=== PATIENT | male | born 1990 | race African-American/Black ===

== ENCOUNTER 2017-08-10 15:09 | Emergency (ER) | payer OTHER ==
[2017-08-10] MEDS ORDERED: ACETAMINOPHEN 500 MG TABLET (FP) PO ONE (15:16)
--- NOTE | 2017-08-10 15:22 | PDOC ---
Rapid Medical Evaluation Time Seen by Provider: 08/10/17 15:16 Medical Evaluation: Allergies Allergy/AdvReac Type Severity Reaction Status Date / Time No Known Drug Allergies Allergy Verified 10/06/14 21:56 08/10/17 15:17 Pt with c/: myalgia and fever since this am, headache with dry cough, no travel , no sick contacts. + hx scd, feels like crisis Pt on brief exam: febrile and tachy Pt ordered for : tylenol 975mg given in triage, cbc, comp, retic count, bc, lactic, ua, ucx, mag pt to proceed to the ED 08/10/17 17:38 Pt unable to be located in the waiting area. Called pt on cell phone and asked why he left. He said he just wanted to go home and not wait. I told pt he was + for influenza A and due to his hx of scd/hiv , he should reiurn to the ED for further evaluation and management. He said ok. Discharge Disposition - Diagnosis Fever - Discharge Dispostion Disposition: ELOPED - Referrals Referrals: Jim Juarez NEWSP[employer]ER DELIVERY COUNSELOR [Primary Care Provider] - - Patient Instructions - Post Discharge Activity
[2017-08-10 15:24] VITALS: BP 145/73; PULSE 110; TEMP 100.5; BMI 28.3
[2017-08-10] MEDS ORDERED: SODIUM CHLORIDE 1,000 ML IV STA (15:24)
[2017-08-10 16:27] LABS: BASO % 0.8 % (0-2.0); EOS % 0.4 % (0-4.5); HEMATOCRIT 37.9 % (35.4-49); HEMOGLOBIN 12.8 GM/dL (11.7-16.9); LYMPH % 10.4 % (8-40); MCH 27.5 pg (25.7-33.7); MCHC 33.8 g/dl (32.0-35.9); MEAN CELL VOLUME 81.5 fl (80-96); MEAN PLT VOLUME 8.8 fl (7.5-11.1); MONO % 11.7 % (3.8-10.2); NEUT % 76.7 % (42.8-82.8); PLATELET COUNT 326 K/MM3 (134-434); RBC 4.65 M/mm3 (4.00-5.60); URINE APPEARANCE CLEAR; URINE BILIRUBIN NEGATIVE (NEGATIVE); URINE BLOOD NEGATIVE (NEGATIVE); URINE COLOR YELLOW; URINE GLUCOSE (UA) NEGATIVE (NEGATIVE); URINE KETONE NEGATIVE (NEGATIVE); URINE LEUK ESTERASE NEGATIVE (NEGATIVE); URINE NITRITE NEGATIVE (NEGATIVE); URINE PROTEIN NEGATIVE (NEGATIVE); URINE UROBILINOGEN 4.0 E.U/dl mg/dL (0.2-1.0); WHITE BLOOD COUNT 12.5 K/mm3 (4.0-10.0)
[2017-08-10 16:49] LABS: ALBUMIN 4.3 g/dl (3.4-5.0); ANION GAP 9 (8-16); BLOOD UREA NITROGEN 5 mg/dL (7-18); CALCIUM 8.3 mg/dL (8.5-10.1); CHLORIDE 103 mmol/L (98-107); CO2 25 mmol/L (21-32); CREATININE 0.8 mg/dL (0.7-1.3); GLUCOSE,RANDOM 87 mg/dL (74-106); LIPASE 98 U/L (73-393); MAGNESIUM 1.6 mg/dL (1.8-2.4); SGOT/AST 17 U/L (15-37); SGPT/ALT 18 U/L (12-78); SODIUM 137 mmol/L (136-145)
[2017-08-10 16:51] LABS: ALK PHOS 105 U/L (45-117); BILIRUBIN,TOTAL 1.5 mg/dL (0.2-1.0); TOT PROT 7.2 g/dl (6.4-8.2)
--- NOTE | 2017-08-11 20:17 | PDOC ---
Patient Follow-up (Call Back) - Post ED Follow - Up Disposition at time of original discharge: ELP Reason for Call Back: Abnwl. Microbiology (Patient eloped from emergency department, blood culture showed pending organism awaiting sensitivity)
--- NOTE | 2017-08-12 07:32 | PDOC ---
Patient Follow-up (Call Back) - Post ED Follow - Up Disposition at time of original discharge: ELOPED Reason for Call Back: Abnwl. Microbiology (+ blood culture. Called patient and left a message on voicemail)
--- NOTE | 2017-08-14 07:35 | PDOC ---
Patient Follow-up (Call Back) - Post ED Follow - Up Disposition at time of original discharge: ELOPED Reason for Call Back: Abnwl. Microbiology (called and l/m for pt to call back)
--- NOTE | 2017-08-14 13:04 | PDOC ---
Patient Follow-up (Call Back) - Post ED Follow - Up Disposition at time of original discharge: ELOPED Reason for Call Back: Abnwl. Microbiology (Patient returned phone call. Noted to have Blood cultures with 1 bottle with the staph epidermidis. Also with positive influenza A testing. Patient states after he left here without being seen presents to [facility] where he was admitted and treated. Currently denies all complaints. Patient states will follow up with his primary doctor.) Signs/Symptoms Improved: Yes
== END 2017-08-10 17:09 | disposition left against medical advice (07) ==
LOC: JER 15:09
DX: R50.9 Fever, unspecified (principal)
CPT/HCPCS: 36415; 80053; 81003; 83605; 83690; 83735; 85025; 85044; 86850; 86900; 86901; 87040; 87086; 87186; 87804; 99281-25